=== PATIENT | female | born 1975 | race Caucasian/White ===

== ENCOUNTER → 2017-03-21 | Outpatient (CLI) | payer BC ==
[~2017-03-21] MED LIST: LIDOCAINE 1% MDV 20ML VIAL As Ordered ONE
--- NOTE | 2017-03-21 14:06 | REP ---
Focused left breast sonography: History: Palpable lump. Negative mammography and ultrasound by report from [facility]. These prior images are not available for direct comparison. The patient is referred for ultrasound-guided needle biopsy. Pre-procedure assessment. Sonographic findings: The left breast is scanned at 3 o'clock in the area of palpable abnormality. Three adjacent hypoechoic nodules are seen each with a hyperechoic rim. These measure as follows: 1.1 x 0.6 x 1.2, 1.4 x 0.4 x 1.2, and 1.2 x 0.7 x 1.2 cm respectively. Ultrasound-guided suction assisted Mammotome biopsy will proceed targeting two adjacent nodules. A marker clip will be placed. Signed by Terence Mccoy MD 03/21/2017 02:34 P
--- NOTE | 2017-03-21 14:19 | REP ---
Digital diagnostic unilateral left breast mammography with CAD: Two views. History: Patient is status post ultrasound-guided needle biopsy procedure with marker clip placement. Marker clip placement views. Findings: The marker clip is seen in the inferolateral quadrant of the left breast middle third. No hematoma is seen. No other mammographic abnormality. Impression: Marker clip placement mammography. Signed by Terence Mccoy MD 03/21/2017 02:34 P
--- NOTE | 2017-03-21 17:55 | REP ---
ULTRASOUND GUIDED LEFT BREAST BIOPSY: The procedure was performed under the direct supervision of Dr. Mccoy. The patient has a history of three adjacent hypoechoic nodules seen in the 3-o'clock position of the left breast under previous ultrasound performed earlier today. Biopsy will be performed on the two adjacent nodules. The risks and benefits of the procedure were explained to the patient and informed consent was obtained. The two adjacent nodules were localized using ultrasound guidance. The skin was prepped and draped in a sterile fashion. 1% Xylocaine was used as a local anesthetic. Using ultrasound guidance, a 13-gauge suction-assisted Mammotome needle was inserted and five core biopsy samples were obtained. A marker clip was placed at the biopsy site. The patient tolerated the procedure well and there were no immediate complications. After the appropriate amount of monitored convalescence the patient was discharged from the department. Reviewed by GLORIA Cueto 03/22/2017 10:22 AEdited and Signed by Terence Mccoy MD 03/22/2017 05:05 P
== END | disposition home or self-care (01) ==
LOC: M RAD 11:56
PROVIDERS: ATTEND Surgery
DX: N60.02 Solitary cyst of left breast (principal); N61.0 Mastitis without abscess; Z88.8 Allergy status to other drugs, medicaments and biological substances; Z98.84 Bariatric surgery status
CPT/HCPCS: 19083; 19084; 76642; 88305; G0206

== ENCOUNTER → 2019-05-07 | Outpatient (CLI) | payer MEDICAID, OTHER ==
--- NOTE | 2019-05-15 13:09 | REP ---
BILATERAL MAMMOGRAM WITH 3D TOMOSYNTHESIS, DIAGNOSTIC MAMMOGRAM LEFT BREAST AND LEFT BREAST ULTRASOUND: Reportedly there is a palpable lump superiorly in the left axillary region. The area cannot be included on any of the mammographic images. No family history of breast cancer. Tyrer-Cuzick lifetime risk of breast cancer 10.2%. MLO and CC views of both breasts performed with 3D tomosynthesis. Axillary CC view left breast also obtained. Comparison made with prior studies for [facility] 08/06/2016. There is moderate scattered fibroglandular tissue bilaterally. No suspicious mass or architectural distortion is seen. No clustered microcalcifications are seen. There is a metallic clip laterally in the left breast from a prior benign biopsy 03/21/2017. Real-time sonographic evaluation of the left axillary region is performed superiorly in the region of the palpable lump. At that location there is an oval hypoechoic nodule demonstrating internal blood flow with Doppler evaluation. It measures 1.8 x 1.1 x 1.2 cm. Borders are mildly lobulated. I suspect this represents a mildly enlarged lymph node. There is a suggestion of a small fatty hilum but morphologically this appears somewhat suspicious. Ultrasound guided biopsy is recommended. IMPRESSION: BIRADS 4: BI-RADS/ACR category 4 mammogram. Suspicious Abnormality - biopsy should be considered. No mammographic abnormality detected. At the site of the palpable lump superiorly in the left axilla there is a hypoechoic nodule which is felt to represent a mildly enlarged lymph node. This appears lobulated with replacement of the fatty hilum. Recommend ultrasound guided biopsy. This mammogram was interpreted with the aid of an FDA-approved computer-aided detection system. The patient states he/she had a clinical breast exam in 05/2018. The patient letter being requested is M4. Electronically Signed by Kedar Urbano MD 05/15/2019 05:35 P
== END ==
LOC: M RAD 14:00
PROVIDERS: ATTEND Surgery
DX: R59.0 Localized enlarged lymph nodes (principal); Z12.31 Encounter for screening mammogram for malignant neoplasm of breast

== ENCOUNTER → 2019-05-30 | Outpatient (CLI) | payer OTHER ==
[~2019-05-30] MED LIST changes: +MULTCAP PO
--- NOTE | 2019-05-30 18:20 | REP ---
ULTRASOUND-GUIDED LEFT AXILLARY LYMPH NODE BIOPSY The procedure was performed under the direct supervision of Dr. Mccoy. The patient has a history of a 1.8 x 1.1 x 1.2 cm oval, hypoechoic nodule in the left axilla seen on a previous ultrasound dated 05/07/2019. The risks and benefits of the procedure were explained to the patient and informed consent was obtained. The left axillary lymph node was localized using ultrasound guidance. The skin was prepped and draped in a sterile fashion. 1% lidocaine was used as a local anesthetic. Using ultrasound guidance a 17/18 gauge coaxial needle biopsy system was inserted and advanced into the lymph node. Eight core biopsy samples were obtained and sent to lab. The patient tolerated the procedure well and there were no immediate complications. After the appropriate amount of monitored convalescence the patient was discharged from the department. Reviewed by GLORIA Cueto 05/30/2019 04:19 P Electronically Signed by Terence Mccoy MD 05/30/2019 06:11 P
== END ==
LOC: M IRPRO 10:36
DX: R59.0 Localized enlarged lymph nodes (principal)